=== PATIENT | female | born 1950 | race African-American/Black ===

== ENCOUNTER → 2016-11-14 | Day surgery (SDC) | payer OTHER ==
[~2016-11-14] MED LIST: ALEVE220 M1 PO; AMLODIPINE BESYL5 MG PO; BYSTOLIC5 MG PO; HIGH POTENCY B1 TAB PO; HYDROCODON-ACE1 EAC7 PO; LIPITOR; NEXIUM PO; OMEPRAZOLE40 M1 PO; RESTASIS32 EA OU; TOPROL XL50 MG PO; WELCHOL3.75 GM PO
--- NOTE | ~2016-11-14 | OR ---
Unit #: [id number] #: [id number] Patient: GWENDOLYN MALIK [id number] [address] [place], [place] [address] [id number] MR#: [id number] NAME: GWENDOLYN MALIK ROOM: Date of Procedure: 11/14/2016 Admission Date: 11/14/2016 Surgeon: Santana Thorne M.D. : 1950 Attending Physician: Santana Thorne M.D. Primary Care Physician: Alona Haddad M.D. OPERATIVE REPORT PRIMARY CARE PHYSICIAN Alona Haddad M.D. PREOPERATIVE DIAGNOSIS Personal history of colon polyps. PROCEDURE PERFORMED Colonoscopy up to cecum with fair prep and visualization. POSTOPERATIVE DIAGNOSES Completely normal examination up to cecum. No mucosal abnormalities whatsoever present. Also, the patient did not have any polyps. RECOMMENDATIONS Repeat colonoscopy in 5 years. SEDATION USED MAC. DESCRIPTION OF PROCEDURE Following detailed explanation of the potential risks and complications of a colonoscopy, namely perforation, bleeding, and complications related to sedation, the patient was brought to GI lab and laid in the left lateral decubitus position. A digital rectal examination was performed, which was normal. Lubricated tip of the Olympus video colonoscope was inserted through the anus and advanced under direct vision. The scope was advanced and passed up to sigmoid into descending colon. No diverticula were noted in this area. The scope tip was then navigated all the way up to cecum with visualization of the ileocecal valve and the appendiceal orifice. Preparation was fair with good visualization and photodocumentation was obtained. Successive segments of the colonic mucosa were examined upon withdrawal and appeared unremarkable. There being no polyps, mass lesions, AVMs, or diverticula. The patient did not have any hemorrhoids at anal verge. The scope was then withdrawn. The patient returned to the recovery area. She tolerated the procedure without any postprocedure complications. Dictated by... Tejas Shin/deandra Unit #: [id number] #: [id number] Patient: GWENDOLYN MALIK TD: 11/14/2016 11:48 JOB #: [id number] OPERATIVE REPORT Page 1 of 1 X Santana Thorne MD OPERATIVE NOTE
== END | disposition home or self-care (01) ==
LOC: COPS 07:47
DX: Z12.11 Encounter for screening for malignant neoplasm of colon (principal); K21.9 Gastro-esophageal reflux disease without esophagitis; M19.90 Unspecified osteoarthritis, unspecified site; I10 Essential (primary) hypertension; J30.2 Other seasonal allergic rhinitis; Z87.891 Personal history of nicotine dependence; Z86.010 Personal history of colon polyps; Z88.8 Allergy status to other drugs, medicaments and biological substances; Z98.890 Other specified postprocedural states; Z79.899 Other long term (current) drug therapy
CPT/HCPCS: J2250